=== PATIENT | male | born 1970 | race Caucasian/White ===

== ENCOUNTER 2020-05-13 06:38 | Emergency (ER) | payer SELFPAY ==
[~2020-05-13] VITALS: Ht 172.7 cm; Wt 77.0 kg
[2020-05-13] MEDS ORDERED: CLINDAMYCIN 600MG PREMIX 50 ML IV ONE (07:45)
[2020-05-13] MEDS ORDERED: IV NORMAL SALINE 1000ML BAG 1,000 ML IV ONE (07:45)
[2020-05-13 08:09] LABS: BASO % 0 % (0-3); EOS # 0.4 x10^3/uL (0.0-0.7); EOS % 4 % (0-3); HEMOGLOBIN 15.4 g/dL (13.0-17.5); LYMPH # 2.6 x10^3/uL (1.0-4.8); LYMPH % 22 % (24-48); MEAN CORPUSCULAR HEMOGLOBIN 30 pg (25-35); MEAN CORPUSCULAR HGB CONC 34 g/dL (31-37); MEAN CORPUSCULAR VOLUME 88 fL (79-100); MONO # 0.7 x10^3/uL (0.0-1.1); MONO % 5 % (0-9); NEUT # 8.4 x10^3/uL (1.8-7.7); NEUT % 69 % (31-73); PLATELET COUNT 228 x10^3/uL (140-400); RED BLOOD COUNT 5.12 x10^6/uL (4.30-5.70); RED CELL DISTRIBUTION WIDTH 13.3 % (11.5-14.5); WHITE BLOOD COUNT 12.1 x10^3/uL (4.0-11.0)
[2020-05-13 08:20] LABS: CALCIUM 8.9 mg/dL (8.5-10.1); GFR 78.8; POTASSIUM 3.4 mmol/L (3.5-5.1)
--- NOTE | 2020-05-13 08:25 | RAD ---
PQRS Compliance Statement: One or more of the following individualized dose reduction techniques were utilized for this examination: 1. Automated exposure control 2. Adjustment of the mA and/or kV according to patient size 3. Use of iterative reconstruction technique CT PELVIS WO CONTRAST Clinical Indication: Reason: infection, hernia? / Spl. Instructions: / History: Comparison: None. TECHNIQUE: Helical CT imaging of the pelvis is performed without IV contrast. Findings: There is moderate stool in the visualized colon. There is no dilated small bowel. No secondary signs of appendicitis. Urinary bladder is normal. Prostate and seminal vesicles are normal. No pelvic free fluid is seen. There is no inguinal adenopathy. There is no inguinal hernia. There is a 9 mm right inguinal lymph node. No acute bone abnormality. IMPRESSION: No acute pelvic abnormality. Electronically signed by: Eliazar Lea MD (05/13/2020 8:22 AM) [id number]
[2020-05-13 09:08] VITALS: BP 133/82
[2020-05-13] MEDS ORDERED: CLIN300C8 PO (09:53)
--- NOTE | 2020-05-13 09:53 | ED.ADGEN ---
Past Medical History Past Medical History: No Pertinent History Past Surgical History: Other Additional Past Surgical Histo: LEFT LOWER LEG SURGERY Smoking Status: Current Every Day Smoker Alcohol Use: Occasionally General Adult EDM: Chief Complaint: ABSCESS HPI: HPI: Patient is a 49 year old male who presents to the emergency room with an abscess on his right hip. It appears to be draining at this time. Is unclear how deep it goes. He has healing abscesses to his underarm. It is unclear what is causing the sudden breakout of abscesses. He also believes that maybe he has a hernia on that same side. He has never had anything like this before. He denies any fevers, chills, sweats. He states that the area under his arm healed after opening and draining on its own. Review of Systems: Review of Systems: Complete ROS is negative unless otherwise documented in HPI Current Medications: Current Medications Medications (Trade) Dose Ordered Sig/Pato Start Time Stop Time Status Last Admin Dose Admin Clindamycin Phosphate 50 ml @ 100 mls/hr 1X ONCE 05/13/20 07:45 05/13/20 08:14 DC 05/13/20 08:35 100 MLS/HR Sodium Chloride 1,000 ml @ 1,000 mls/hr 1X ONCE 05/13/20 07:45 05/13/20 08:44 DC 05/13/20 08:36 1,000 MLS/HR Allergies: Allergies: Allergies Coded Allergies Type Severity Reaction Last Updated Verified Penicillins Allergy Intermediate 05/13/20 Yes strawberry Allergy Unknown 05/13/20 Yes Physical Exam: PE: General: Awake, alert, NAD. Well Nourished, well hydrated. Cooperative HEENT: Atraumatic, EOMI, PERRL, airway patent, moist oral mucosa Neck: Supple, trachea midline Respiratory: CTA bilaterally, normal effort, no wheezing/crackles CV: RRR, no murmur, cap refill <2 GI: Soft, nondistended, nontender, no masses MSK: No obvious deformities Skin: Warm, dry Right axilla: Area of erythema with central opening that appears to be healing Right hip: 4x5cm indurated, fluctuant raised area consistent with an abscess that appears to be draining spontaneously Neuro: A&O x3, speech NL, sensory and motor grossly intact, no focal deficits Psych: Normal affect, normal mood, not suicidal or homicidal Current Patient Data: Labs: Laboratory Tests Test 05/13/20 07:45 White Blood Count 12.1 x10^3/uL (4.0-11.0) H Red Blood Count 5.12 x10^6/uL (4.30-5.70) Hemoglobin 15.4 g/dL (13.0-17.5) Hematocrit 45.0 % (39.0-53.0) Mean Corpuscular Volume 88 fL (79-100) Mean Corpuscular Hemoglobin 30 pg (25-35) Mean Corpuscular Hemoglobin Concent 34 g/dL (31-37) Red Cell Distribution Width 13.3 % (11.5-14.5) Platelet Count 228 x10^3/uL (140-400) Neutrophils (%) (Auto) 69 % (31-73) Lymphocytes (%) (Auto) 22 % (24-48) L Monocytes (%) (Auto) 5 % (0-9) Eosinophils (%) (Auto) 4 % (0-3) H Basophils (%) (Auto) 0 % (0-3) Neutrophils # (Auto) 8.4 x10^3/uL (1.8-7.7) H Lymphocytes # (Auto) 2.6 x10^3/uL (1.0-4.8) Monocytes # (Auto) 0.7 x10^3/uL (0.0-1.1) Eosinophils # (Auto) 0.4 x10^3/uL (0.0-0.7) Basophils # (Auto) 0.0 x10^3/uL (0.0-0.2) Sodium Level 139 mmol/L (136-145) Potassium Level 3.4 mmol/L (3.5-5.1) L Chloride Level 104 mmol/L (98-107) Carbon Dioxide Level 25 mmol/L (21-32) Anion Gap 10 (6-14) Blood Urea Nitrogen 22 mg/dL (8-26) Creatinine 1.0 mg/dL (0.7-1.3) Estimated GFR (Cockcroft-Gault) 78.8 Glucose Level 141 mg/dL (70-99) H Calcium Level 8.9 mg/dL (8.5-10.1) Laboratory Tests 05/13/20 07:45 Laboratory Tests 11/8/20 07:45 Vital Signs: Vital Signs Date Time Temp Pulse Resp B/P (MAP) Pulse Ox O2 Delivery O2 Flow Rate FiO2 05/13/20 09:08 94 133/82 (99) 99 Room Air 05/13/20 07:00 98.8 22 98.8 EKG: EKG: [] Heart Score: Risk Factors: Risk Factors: DM, Current or recent (<one month) smoker, HTN, HLP, family history of CAD, obesity. Risk Scores: Score 0 - 3: 2.5% MACE over next 6 weeks - Discharge Home Score 4 - 6: 20.3% MACE over next 6 weeks - Admit for Clinical Observation Score 7 - 10: 72.7% MACE over next 6 weeks - Early Invasive Strategies Radiology/Procedures: Radiology/Procedures: [] Course & Med Decision Making: Course & Med Decision Making Pertinent Labs and Imaging studies reviewed. (See chart for details) Patient is a 49-year-old male who presents to the emergency room with concerns for abscess and a possible hernia. Patient does not currently have a hernia on exam. He does have an abscess on his right hip and healing abscesses in his right axilla. He was given a dose of IV clindamycin. He is not febrile or septic at this time. Patient would like to be treated outpatient as he needs to take care of his father. CT was done to evaluate for unseen hernia or a deep abscess. CT does not show any concerning findings at this time. Abscess is spontaneously draining on its own. Will place on clindamycin. Patient's test results and vitals while in the ED were fully reviewed and discussed with the patient. Patient is stable and at this time does not need admission to the hospital. We have discussed strict return precautions and the importance of following up with their Primary Care Physician. Patient stated understanding and was given an opportunity to ask any questions. Patient is in agreement with plan. Davidon Disclaimer: Lottie Disclaimer: This electronic medical record was generated, in whole or in part, using a voice recognition dictation system. Departure Departure Impression: Primary Impression: Cellulitis and abscess of lower extremity Disposition: 01 DC HOME SELF CARE/HOMELESS Condition: STABLE Referrals: NO PCP (PCP) Patient Instructions: Cellulitis Scripts Clindamycin Hcl (CLINDAMYCIN HCL) 300 Mg Capsule 1 CAP PO TID for 10 Days, #30 CAP Prov: ALEJANDRA BAUTISTA MD 05/13/20 ALEJANDRA BAUTISTA MD May 13, 2020 09:53
== END 2020-05-13 10:00 | disposition home or self-care (01) ==
LOC: ER 06:38
DX: L03.115 Cellulitis of right lower limb (principal); L02.411 Cutaneous abscess of right axilla; F17.200 Nicotine dependence, unspecified, uncomplicated; Z88.0 Allergy status to penicillin; Z91.018 Allergy to other foods
CPT/HCPCS: 36415; 72192; 80048; 85025; 87040; 96365; 99285; J3490; J7030

== ENCOUNTER 2020-09-04 22:02 | Emergency (ER) | payer SELFPAY ==
[~2020-09-04] VITALS: Ht 182.9 cm; Wt 75.0 kg
[~2020-09-04 22:02] MED LIST: CLIN300C9 PO
[2020-09-04 22:22] VITALS: BP 133/82
[2020-09-04 22:31] LABS: BILIRUBIN,URINE NEGATIVE (NEG); CLARITY,URINE CLOUDY; COLOR,URINE YELLOW; NITRITE,URINE NEGATIVE (NEG); PROTEIN,URINE 100 mg/dL (NEG-TRACE); UROBILINOGEN,URINE 0.2 mg/dL (0.2 mg/dL)
[2020-09-04 22:46] LABS: BACTERIA,URINE MODERATE /HPF (0-FEW); RBC,URINE 20-40 /HPF (0-2); WBC,URINE TNTC /HPF (0-4)
--- NOTE | 2020-09-04 22:58 | PHYS DOC ---
Past Medical History Past Medical History: No Pertinent History Past Surgical History: Other Additional Past Surgical Histo: LEFT LOWER LEG SURGERY Smoking Status: Current Every Day Smoker Alcohol Use: Occasionally Drug Use: Marijuana General Adult EDM: Chief Complaint: MULTIPLE COMPLAINTS HPI: HPI: Patient is a 50 year old male who presents with concern for skin infection and sexually transmitted disease. Patient notes that he was treated for staph infections in May 2020 and then ran out of his antibiotic. He notes that 2 weeks ago he started having increased redness, swelling, tenderness on his left lower thigh and right lower thigh. He notes that he has been having dysuria, urinary frequency, and right-sided testicular pain that radiates down his right leg for the last week and a half and he is also been having white creamy milky penile discharge for the last 3 days. Patient denies any other associated symptoms. Review of Systems: Review of Systems: Constitutional: Denies fever or chills Eyes: Denies redness or eye pain HENT: Denies nasal congestion or sore throat Respiratory: Denies cough or shortness of breath Cardiovascular: Denies chest pain or palpitations GI: Denies abdominal pain, nausea, or vomiting : Denies hematuria Musculoskeletal: Denies back pain or joint pain Integument: Denies rash; reports erythema and small areas concerning for abscess Neurologic: Denies headache, focal weakness or sensory changes Complete systems were reviewed and found to be within normal limits, except as documented in this note. Allergies: Allergies: Allergies Coded Allergies Type Severity Reaction Last Updated Verified Penicillins Allergy Intermediate 05/13/20 Yes strawberry Allergy Unknown 05/13/20 Yes Physical Exam: PE: Constitutional: Well developed, well nourished, no acute distress, non-toxic appearance HENT: Normocephalic, atraumatic Eyes: Conjunctiva normal, no discharge Neck: Normal range of motion, no tenderness, supple Lungs & Thorax: No respiratory distress, equal chest rise and fall Abdomen: Soft, no tenderness Skin: Warm, dry, 1 cm erythematous rash on left lower thigh no induration or purulence, 2 cm erythematous rash on right lower thigh with mild induration and without any purulence Extremities: No tenderness, ROM intact, no edema : Cremasteric reflexes intact bilaterally, razor burn noted on pubis, no rash or ulcerations appreciated, no discharge from penile loss, circumcised male, right testicular tenderness on palpation Neurologic: Alert and oriented X 3, normal motor function, normal sensory function, no focal deficits noted Psychologic: Affect normal, judgment normal Current Patient Data: Labs: Laboratory Tests Test 09/04/20 22:10 Urine Collection Type Unknown Urine Color Yellow Urine Clarity Cloudy Urine pH 6.0 (<5.0-8.0) Urine Specific [place] >=1.030 (1.000-1.030) Urine Protein 100 mg/dL (NEG-TRACE) Urine Glucose (UA) Negative mg/dL (NEG) Urine Ketones (Stick) Negative mg/dL (NEG) Urine Blood Moderate (NEG) Urine Nitrite Negative (NEG) Urine Bilirubin Negative (NEG) Urine Urobilinogen Dipstick 0.2 mg/dL (0.2 mg/dL) Urine Leukocyte Esterase Large (NEG) Urine RBC 20-40 /HPF (0-2) Urine WBC Tntc /HPF (0-4) Urine Squamous Epithelial Cells Few /LPF Urine Bacteria Moderate /HPF (0-FEW) Urine Mucus Slight /LPF Vital Signs: Vital Signs Date Time Temp Pulse Resp B/P (MAP) Pulse Ox O2 Delivery O2 Flow Rate FiO2 09/04/20 22:22 98.2 98 16 133/82 (99) 100 Room Air 98.2 EKG: EKG: [] Radiology/Procedures: Radiology/Procedures: [] Course & Med Decision Making: Course & Med Decision Making Patient is a 50-year-old male who comes to the ED today for concerns for possible skin infection and STI. UA positive for signs of infection. Urine chlamydia/gonorrhea cultures pending. Empiric antibiotic given. No drainable abscesses noted. Rx for Keflex and Bactrim provided. Patient stable for discharge with outpatient follow-up with PCP. Discussed findings and plan with patient, who acknowledges understanding and agreement. Lottie Disclaimer: Lottie Disclaimer: This electronic medical record was generated, in whole or in part, using a voice recognition dictation system. Departure Departure Impression: Primary Impression: Concern about STD in male without diagnosis Additional Impressions: Urinary tract infection Qualified Codes: N30.01 - Acute cystitis with hematuria Cellulitis and abscess of lower extremity Disposition: 01 DC HOME SELF CARE/HOMELESS Condition: STABLE Referrals: NO PCP (PCP) Patient Instructions: Abscess, [id number], Sexually Transmitted Disease, [id number], Urinary Tract Infection, [id number] Scripts Sulfamethoxazole/Trimethoprim (BACTRIM DS TABLET) 1 Each Tablet 2 EACH PO BID for 7 Days, #28 TAB Prov: ARLETTE WATERMAN DO 09/04/20 Cephalexin (CEPHALEXIN) 500 Mg Capsule 1 CAP PO QID for 7 Days, #28 CAP Prov: ARLETTE WATERMAN DO 09/04/20 ARLETTE WATERMAN DO Sep 04, 2020 22:58
[2020-09-04] MEDS ORDERED: SULF1TAB24 PO (23:02)
[2020-09-04] MEDS ORDERED: CEPH500C PO (23:02)
[2020-09-04] MEDS ORDERED: AZITHROMYCIN 250 MG TABLET. PO ONE (23:30)
[2020-09-04] MEDS ORDERED: cefTRIAXone IM 500 MG VIAL. IM ONE (23:30)
== END 2020-09-04 23:15 | disposition home or self-care (01) ==
LOC: ER 22:02
DX: N30.01 Acute cystitis with hematuria (principal); L02.416 Cutaneous abscess of left lower limb; R30.0 Dysuria; R60.0 Localized edema; F17.200 Nicotine dependence, unspecified, uncomplicated; F12.90 Cannabis use, unspecified, uncomplicated; Z98.890 Other specified postprocedural states; Z88.0 Allergy status to penicillin; Z91.018 Allergy to other foods
CPT/HCPCS: 81001; 87086; 87491; 87591; 96372; 99283; J0696